=== PATIENT | female | born 1960 | race Two or more races ===

== ENCOUNTER 2021-07-26 08:08 | Emergency (ER) | payer BC, OTHER ==
[~2021-07-26] VITALS: Ht 162.6 cm; Wt 93.9 kg
[2021-07-26 09:10] VITALS: BP 136/71
[2021-07-26] MEDS ORDERED: CEPH-509 PO (09:34)
== END 2021-07-26 09:59 | disposition home or self-care (01) ==
LOC: ER 08:08
DX: S31.119A Laceration without foreign body of abdominal wall, unspecified quadrant without penetration into peritoneal cavity, initial encounter (principal); Z88.1 Allergy status to other antibiotic agents; W26.0XXA Contact with knife, initial encounter; Y93.89 Activity, other specified; Y92.89 Other specified places as the place of occurrence of the external cause; Y99.8 Other external cause status
CPT/HCPCS: 12001

== ENCOUNTER 2021-12-16 15:15 | Inpatient (IN) | payer BC ==
[~2021-12-16] VITALS: Ht 162.6 cm; Wt 99.6 kg
[~2021-12-16 15:15] MED LIST: CEPH-509 PO
[2021-12-16 17:00] LABS: Basophils # (auto) 0.1 10 ^3/uL (0-0.2); Basophils % (auto) 1.4 % (0.0-2.0); Eosinophils # (auto) 0.1 10 ^3/uL (0-0.8); Eosinophils % (auto) 1.4 % (0.0-7.0); Hematocrit 31.7 % (36.0-46.0); Lymphocytes # (auto) 0.6 10 ^3/uL (0.4-5.4); Mean Corpuscular Hemoglobin 23.8 pg (28.0-32.0); Mean Corpuscular Hgb Conc. 31.5 g/dL (32.0-36.0); Mean Corpuscular Volume 75.5 fL (80.0-100.0); Monocytes # (auto) 0.6 10 ^3/uL (0-1.3); Monocytes % (auto) 8.7 % (0.0-12.0); Neutrophils # (auto) 5.1 10 ^3/uL (1.6-8.6); Neutrophils % (auto) 79.5 % (37.0-80.0); Red Cell Distribution Width 19.2 % (11.8-14.3); White Blood Cell 6.4 10^3/uL (4.4-10.8)
[2021-12-16 17:01] LABS: Albumin 3.8 g/dL (3.4-5.0); Calcium 8.9 mg/dL (8.5-10.1); Magnesium 2.3 mg/dL (1.6-2.6); Potassium 3.9 mmol/L (3.5-5.1)
[2021-12-16 17:04] LABS: Bilirubin, Total 0.4 mg/dL (0.2-1.0); Total Protein 7.1 g/dL (6.4-8.2)
[2021-12-16] MEDS ORDERED: HYDROcodone-ACET 5/325MG TAB ONE (21:16)
[2021-12-16] MEDS ORDERED: HYDROcodone-ACET 5/325MG TAB PO ONE (22:00)
[2021-12-17] VITALS (8 sets, daily range): BP systolic 99–138; BP diastolic 39–69
[2021-12-17] MEDS ORDERED: ATOR-47 PO (01:43)
[2021-12-17] MEDS ORDERED: PREG100C PO (01:43)
[2021-12-17] MEDS ORDERED: SIMV-8 PO (01:43)
[2021-12-17] MEDS ORDERED: ALEN70TA74 PO (01:43)
[2021-12-17] MEDS ORDERED: DICL50TA4 PO (01:43)
[2021-12-17] MEDS ORDERED: FLUT100I IN (01:43)
[2021-12-17] MEDS ORDERED: FOLI1TAB6 PO (01:43)
[2021-12-17] MEDS ORDERED: CLOP75TA70 PO (01:43)
[2021-12-17] MEDS ORDERED: OMEG100078 PO (01:43)
[2021-12-17] MEDS ORDERED: CHOL-17 PO (01:43)
[2021-12-17] MEDS ORDERED: ALBUAER3 IN (01:43)
[2021-12-17] MEDS ORDERED: ASPI-543 PO (01:43)
[2021-12-17] MEDS ORDERED: NINT1CAP2 PO (01:43)
[2021-12-17] MEDS ORDERED: NITROGLYCERIN 0.4 MG SL TAB SL STA (01:47)
[2021-12-17] MEDS ORDERED: HYDROcodone-ACET 5/325MG TAB PO ONE (02:15)
[2021-12-17] MEDS ORDERED: ASPirin 81 mg TAB PO ONE (03:00)
[2021-12-17] MEDS ORDERED: ATORVASTATIN 20 MG TAB PO ONE (03:00)
[2021-12-17] MEDS ORDERED: ONDANSETRON HCL 4 MG/2 ML VIAL IV PRN (03:00)
[2021-12-17] MEDS ORDERED: CLOPIDOGREL BISULFATE 75 MG TAB PO ONE (03:00)
[2021-12-17] MEDS ORDERED: NITROGLYCERIN 0.4 MG SL TAB SL PRN (03:00)
[2021-12-17] MEDS ORDERED: MORPHINE SULFATE INJ 2 MG/ml SYRG IV PRN (03:00)
[2021-12-17] MEDS ORDERED: ENOXAPARIN SOD 100 MG/1 ML SYRINGE SC ONE (03:00)
[2021-12-17] MEDS: ASPirin 81 mg TAB PO SCH (10:41)
[2021-12-17] MEDS: PREGABALIN 25 MG CAP PO SCH ×2 (10:43→21:47)
[2021-12-17] MEDS: PANTOPRAZOLE 40 MG TAB PO SCH (10:43)
[2021-12-17] MEDS: METOPROLOL SUCCINATE XL 50 MG TAB PO SCH (10:43)
[2021-12-17 13:12] LABS: Urine Bacteria NONE SEEN /hpf (None Seen); Urine Blood Negative /uL (Negative); Urine Specific Gravity 1.024 (1.001-1.035); Urine WBC 7 /hpf (0 - 5)
[2021-12-17] MEDS ORDERED: PANT40T PO (15:01)
[2021-12-17] MEDS ORDERED: PREG-111 PO (15:01)
[2021-12-17] MEDS: ENOXAPARIN SOD 40 MG/0.4 ML SYRINGE SC SCH (17:15)
[2021-12-17] MEDS: HYDROcodone-ACET 5/325MG TAB PO PRN (19:34)
[2021-12-17] MEDS: ATORVASTATIN 20 MG TAB PO SCH (21:47)
[2021-12-17] MEDS ORDERED: NINTEDANIB ESYLATE 150 MG PO SCH (22:00)
[2021-12-18] VITALS (7 sets, daily range): BP systolic 99–127; BP diastolic 37–64
[2021-12-18 06:37] LABS: Basophils # (auto) 0.1 10 ^3/uL (0-0.2); Eosinophils # (auto) 0.2 10 ^3/uL (0-0.8); Monocytes # (auto) 0.5 10 ^3/uL (0-1.3); Neutrophils # (auto) 2.5 10 ^3/uL (1.6-8.6)
[2021-12-18 06:39] LABS: Basophils % (auto) 1.3 % (0.0-2.0); Eosinophils % (auto) 5.4 % (0.0-7.0); Hematocrit 27.2 % (36.0-46.0); Hemoglobin 8.7 g/dL (12.2-16.2); Lymphocytes # (auto) 0.7 10 ^3/uL (0.4-5.4); Lymphocytes % (auto) 17.6 % (10.0-50.0); Mean Corpuscular Hemoglobin 23.8 pg (28.0-32.0); Mean Corpuscular Volume 74.4 fL (80.0-100.0); Monocytes % (auto) 12.6 % (0.0-12.0); Neutrophils % (auto) 63.1 % (37.0-80.0); Nucleated Red Blood Cells % 0.2 %; Red Blood Cells 3.66 10^6/uL (4.0-5.20); Red Cell Distribution Width 18.9 % (11.8-14.3)
[2021-12-18 06:57] LABS: Albumin 3.3 g/dL (3.4-5.0); Calcium 8.7 mg/dL (8.5-10.1); Potassium 3.9 mmol/L (3.5-5.1)
[2021-12-18 07:02] LABS: BUN/Creatinine Ratio 14.4; Bilirubin, Total 0.7 mg/dL (0.2-1.0); Total Protein 6.3 g/dL (6.4-8.2)
[2021-12-18] MEDS: PANTOPRAZOLE 40 MG TAB PO SCH (09:26)
[2021-12-18] MEDS: ASPirin 81 mg TAB PO SCH (09:26)
[2021-12-18] MEDS: METOPROLOL SUCCINATE XL 50 MG TAB PO SCH (09:28)
[2021-12-18] MEDS: ENOXAPARIN SOD 40 MG/0.4 ML SYRINGE SC SCH (09:28)
[2021-12-18] MEDS: NINTEDANIB ESYLATE 150 MG PO SCH ×2 (09:30→18:00)
[2021-12-18] MEDS: PREGABALIN 25 MG CAP PO SCH ×2 (09:42→22:53)
[2021-12-18] MEDS ORDERED: ADENOSINE 83 MG in GIVE UN-DILUTED 0 ML IV ONE (14:45)
[2021-12-18] MEDS: ATORVASTATIN 20 MG TAB PO SCH (22:53)
[2021-12-18] MEDS: HYDROcodone-ACET 5/325MG TAB PO PRN (23:41)
[2021-12-19] VITALS (7 sets, daily range): BP systolic 108–145; BP diastolic 58–84
[2021-12-19] MEDS: PREGABALIN 25 MG CAP PO SCH ×2 (09:03→22:26)
[2021-12-19] MEDS: ASPirin 81 mg TAB PO SCH (09:04)
[2021-12-19] MEDS: METOPROLOL SUCCINATE XL 50 MG TAB PO SCH (09:04)
[2021-12-19] MEDS: NINTEDANIB ESYLATE 150 MG PO SCH ×2 (09:05→16:40)
[2021-12-19] MEDS: PANTOPRAZOLE 40 MG TAB PO SCH (09:05)
[2021-12-19] MEDS: HYDROCORTONE 1% TOPICAL CREAM 30 GM TUBE TOP SCH (22:00)
[2021-12-19] MEDS: ATORVASTATIN 20 MG TAB PO SCH (22:27)
[2021-12-19] MEDS: HYDROcodone-ACET 5/325MG TAB PO PRN (22:29)
[2021-12-20 05:00] VITALS: BP 113/49
[2021-12-20 09:00] VITALS: BP 114/65
[2021-12-20] MEDS: NINTEDANIB ESYLATE 150 MG PO SCH ×2 (09:02→17:37)
[2021-12-20] MEDS: ASPirin 81 mg TAB PO SCH (09:26)
[2021-12-20] MEDS: PANTOPRAZOLE 40 MG TAB PO SCH ×2 (09:26→21:37)
[2021-12-20] MEDS: PREGABALIN 25 MG CAP PO SCH ×2 (09:26→21:36)
[2021-12-20] MEDS: METOPROLOL SUCCINATE XL 50 MG TAB PO SCH (09:27)
[2021-12-20 12:54] LABS: Hematocrit 29.3 % (36.0-46.0); Hemoglobin 9.1 g/dL (12.2-16.2)
[2021-12-20 13:00] VITALS: BP 110/62
[2021-12-20] MEDS: HYDROcodone-ACET 5/325MG TAB PO PRN ×2 (14:26→21:37)
[2021-12-20 16:52] VITALS: BP 116/58
[2021-12-20] MEDS: HYDROCORTONE 1% TOPICAL CREAM 30 GM TUBE TOP SCH ×2 (17:00→21:38)
[2021-12-20] MEDS: ATORVASTATIN 20 MG TAB PO SCH (21:36)
[2021-12-20 22:00] VITALS: BP 108/64
[2021-12-21 05:00] VITALS: BP 107/62
[2021-12-21 06:33] LABS: INR 0.99 (0.9-1.15); Partial Thromboplastin Time 26.9 sec (24.6-33.4)
[2021-12-21 06:38] LABS: Basophils # (auto) 0.1 10 ^3/uL (0-0.2); Eosinophils # (auto) 0.2 10 ^3/uL (0-0.8); Eosinophils % (auto) 5.5 % (0.0-7.0); Lymphocytes # (auto) 0.7 10 ^3/uL (0.4-5.4); Monocytes # (auto) 0.4 10 ^3/uL (0-1.3); Neutrophils # (auto) 2.6 10 ^3/uL (1.6-8.6)
[2021-12-21 06:40] LABS: Basophils % (auto) 1.3 % (0.0-2.0); Hematocrit 27.8 % (36.0-46.0); Lymphocytes % (auto) 17.1 % (10.0-50.0); Mean Corpuscular Hemoglobin 24.7 pg (28.0-32.0); Mean Corpuscular Hgb Conc. 32.6 g/dL (32.0-36.0); Mean Corpuscular Volume 75.7 fL (80.0-100.0); Monocytes % (auto) 10.8 % (0.0-12.0); Neutrophils % (auto) 65.3 % (37.0-80.0); Nucleated Red Blood Cells % 0.1 %; Red Blood Cells 3.67 10^6/uL (4.0-5.20); Red Cell Distribution Width 19.1 % (11.8-14.3)
[2021-12-21 06:42] LABS: Potassium 3.9 mmol/L (3.5-5.1)
[2021-12-21 06:48] LABS: Albumin 3.5 g/dL (3.4-5.0); BUN/Creatinine Ratio 11.7; Calcium 8.8 mg/dL (8.5-10.1)
[2021-12-21 07:00] LABS: Bilirubin, Total 0.5 mg/dL (0.2-1.0); Total Protein 6.3 g/dL (6.4-8.2)
[2021-12-21] MEDS: NINTEDANIB ESYLATE 150 MG PO SCH ×2 (08:00→17:50)
[2021-12-21 08:57] VITALS: BP 115/57
[2021-12-21] MEDS: METOPROLOL SUCCINATE XL 50 MG TAB PO SCH (10:00)
[2021-12-21] MEDS: ASPirin 81 mg TAB PO SCH (10:00)
[2021-12-21] MEDS: PANTOPRAZOLE 40 MG TAB PO SCH ×3 (10:00→21:35)
[2021-12-21] MEDS: PREGABALIN 25 MG CAP PO SCH ×2 (10:00→21:35)
[2021-12-21] MEDS: HYDROCORTONE 1% TOPICAL CREAM 30 GM TUBE TOP SCH ×2 (10:25→21:35)
[2021-12-21] MEDS ORDERED: IODIXANOL 320MG/ML 100ML BTL IV ONE (12:14)
[2021-12-21] MEDS ORDERED: LIDOCAINE 2%HCL (LOCAL ANESTH.) INJ 10ml MDV ONE (12:15)
[2021-12-21 13:00] VITALS: BP 111/59
[2021-12-21] MEDS ORDERED: ANGIOMAX 250 MG VIAL IV ONE (13:27)
[2021-12-21] MEDS ORDERED: fentaNYL CITRATE 100 MCG/2 ML VL ONE (13:27)
[2021-12-21] MEDS ORDERED: MIDAZOLAM HCL 2MG/2ML 2ml VIAL (1mg/ml) ONE (13:27)
[2021-12-21] MEDS ORDERED: SODIUM CHL 0.9% 50 ML ONE (13:27)
[2021-12-21] MEDS ORDERED: CLOPIDOGREL 300 MG TAB ONE (14:13)
[2021-12-21] MEDS: HYDROcodone-ACET 5/325MG TAB PO PRN (14:52)
[2021-12-21 17:00] VITALS: BP 135/57
[2021-12-21 20:00] VITALS: BP 114/65
[2021-12-21] MEDS: ATORVASTATIN 20 MG TAB PO SCH (21:35)
[2021-12-21 22:00] VITALS: BP 115/67
[2021-12-22 05:00] VITALS: BP 109/67
[2021-12-22 08:39] VITALS: BP 104/59
[2021-12-22] MEDS ORDERED: ASPI-325 PO (09:55)
[2021-12-22] MEDS ORDERED: ATOR20TA50 PO (09:55)
[2021-12-22] MEDS ORDERED: CLOP75TA70 PO (09:55)
[2021-12-22] MEDS ORDERED: METO-6 PO (09:55)
[2021-12-22] MEDS: PANTOPRAZOLE 40 MG TAB PO SCH (09:59)
[2021-12-22] MEDS: NINTEDANIB ESYLATE 150 MG PO SCH (09:59)
[2021-12-22] MEDS: ASPirin 81 mg TAB PO SCH (10:00)
[2021-12-22] MEDS ORDERED: CLOPIDOGREL BISULFATE 75 MG TAB PO SCH (10:00)
[2021-12-22] MEDS: PREGABALIN 25 MG CAP PO SCH (10:00)
[2021-12-22] MEDS: METOPROLOL SUCCINATE XL 50 MG TAB PO SCH (10:00)
[2021-12-22] MEDS: HYDROCORTONE 1% TOPICAL CREAM 30 GM TUBE TOP SCH (10:00)
[2021-12-22 11:34] VITALS: BP 105/61
== END 2021-12-22 13:40 | disposition home or self-care (01) | DRG 247 ==
LOC: ER 15:15 → TELE 12-17 02:50 → TELE-CENTR 12-17 07:42
PROVIDERS: ADMIT Nurse Practitioner; ATTEND Internal Medicine
PROC: 027034Z Dilation of Coronary Artery, One Artery with Drug-eluting Intraluminal Device, Percutaneous Approach (ICD-10-PCS; principal; 2021-12-21)
PROC: 4A023N7 Measurement of Cardiac Sampling and Pressure, Left Heart, Percutaneous Approach (ICD-10-PCS; 2021-12-21)
PROC: B211YZZ Fluoroscopy of Multiple Coronary Arteries using Other Contrast (ICD-10-PCS; 2021-12-21)
PROC: B215YZZ Fluoroscopy of Left Heart using Other Contrast (ICD-10-PCS; 2021-12-21)
DX: I21.4 Non-ST elevation (NSTEMI) myocardial infarction (principal); J96.10 Chronic respiratory failure, unspecified whether with hypoxia or hypercapnia; I69.354 Hemiplegia and hemiparesis following cerebral infarction affecting left non-dominant side; E78.5 Hyperlipidemia, unspecified; I10 Essential (primary) hypertension; J44.9 Chronic obstructive pulmonary disease, unspecified; J84.10 Pulmonary fibrosis, unspecified; Z20.822 Contact with and (suspected) exposure to COVID-19; M19.90 Unspecified osteoarthritis, unspecified site; D64.9 Anemia, unspecified; D75.89 Other specified diseases of blood and blood-forming organs; E66.9 Obesity, unspecified; Z68.37 Body mass index [BMI] 37.0-37.9, adult; Z79.02 Long term (current) use of antithrombotics/antiplatelets; Z79.82 Long term (current) use of aspirin; Z79.899 Other long term (current) drug therapy; Z82.3 Family history of stroke; Z82.49 Family history of ischemic heart disease and other diseases of the circulatory system; Z88.8 Allergy status to other drugs, medicaments and biological substances
CPT/HCPCS: 36415; 71045; 78452; 80053; 81001; 83036; 83735; 84443; 84484; 85014; 85018; 85025; 85379; 85610; 85730; 86850; 86900; 86901; 93005; 93017; 93306; 96372; 99152; 99291; C1874; G0378; J0153; J2001; J2250; Q9967

== ENCOUNTER 2022-11-05 11:55 | Inpatient (IN) | payer BC, MEDICARE ==
[~2022-11-05] VITALS: Ht 162.6 cm; Wt 91.7 kg
[~2022-11-05 11:55] MED LIST changes: +ALBUAER3 IN; +ALEN70TA74 PO; +ASPI-325 PO; +ASPI-543 PO; +ATOR-47 PO; +ATOR20TA50 PO; -CEPH-509 PO; +CHOL-17 PO; +CLOP75TA70 PO; +DICL50TA4 PO; +FLUT100I IN; +FOLI-119 PO; +METO-6 PO; +NINT1CAP2 PO; +OMEG-20 PO; +PANT40T PO; +PREG-111 PO; +PREG100C PO; +SIMV20TA20 PO
[2022-11-05 12:57] LABS: Basophils # (auto) 0.1 10 ^3/uL (0-0.2); Basophils % (auto) 0.8 % (0.0-2.0); Eosinophils # (auto) 0.1 10 ^3/uL (0-0.8); Hematocrit 36.2 % (36.0-46.0); Hemoglobin 12.8 g/dL (12.2-16.2); Lymphocytes # (auto) 2.7 10 ^3/uL (0.4-5.4); Lymphocytes % (auto) 23.5 % (10.0-50.0); Mean Corpuscular Hemoglobin 32.9 pg (28.0-32.0); Mean Corpuscular Hgb Conc. 35.4 g/dL (32.0-36.0); Mean Corpuscular Volume 93.1 fL (80.0-100.0); Monocytes # (auto) 1.1 10 ^3/uL (0-1.3); Neutrophils # (auto) 7.4 10 ^3/uL (1.6-8.6); Neutrophils % (auto) 64.7 % (37.0-80.0); Nucleated Red Blood Cells % 0.1 %; Red Blood Cells 3.89 10^6/uL (4.0-5.20); White Blood Cell 11.5 10^3/uL (4.4-10.8)
[2022-11-05 13:39] LABS: Albumin 3.7 g/dL (3.4-5.0); Potassium 3.4 mmol/L (3.5-5.1)
[2022-11-05 13:52] LABS: BUN/Creatinine Ratio 22.4 (10.0-20.0); Bilirubin, Total 0.7 mg/dL (0.2-1.0); Calcium 9.1 mg/dL (8.5-10.1); Total Protein 6.9 g/dL (6.4-8.2)
[2022-11-05] MEDS ORDERED: SODIUM CHLORIDE 0.9% 1,000 ML IV ONE (14:45)
[2022-11-05] MEDS ORDERED: POTASSIUM EFFERVESENT TAB 25 MEQ GT ONE (14:45)
[2022-11-05 16:19] LABS: Urine Bacteria FEW /hpf (None Seen); Urine Blood Negative /uL (Negative); Urine Specific Gravity 1.006 (1.001-1.035); Urine WBC 27 /hpf (0 - 5)
[2022-11-05] MEDS ORDERED: ONDANSETRON HCL 4 MG/2 ML VIAL IV PRN (18:15)
[2022-11-05] MEDS ORDERED: DOCUSATE SOD 100 MG CAP PO PRN (18:15)
[2022-11-05] MEDS ORDERED: ALBUTEROL SULF 2.5 MG/0.5ML(0.5%) NEB SOLN NEB PRN (18:30)
[2022-11-05] MEDS: SODIUM CHLORIDE 0.9% 1,000 ML IV SCH (18:38)
[2022-11-05] MEDS: cefTRIAXone 1GM/50ML D5W 50 ML IV SCH (18:52)
[2022-11-05] MEDS: PANTOPRAZOLE 40 MG/10 ML VIAL INJ IV SCH (18:52)
[2022-11-05 19:06] LABS: Creatinine, Urine 56 mg/dL (30.0-125.0); Sodium Urine 19 mmol/L (40-220)
[2022-11-05] MEDS ORDERED: NOREPINEPHRINE 8 MG/250ML KIT 250 ML IV ONE (19:53)
[2022-11-05] MEDS: NOREPINEPHRINE 8 MG/250ML KIT 250 ML IV SCH (20:04)
[2022-11-05 20:59] VITALS: BP 83/49
[2022-11-05] MEDS: ATORVASTATIN 20 MG TAB PO SCH (22:50)
[2022-11-05] MEDS ORDERED: ACETAMINOPHEN 325 MG TAB PO ONE (23:00)
[2022-11-05 23:30] VITALS: BP 111/55
[2022-11-05 23:35] VITALS: BP 111/55
[2022-11-05 23:45] VITALS: BP 96/60
[2022-11-06] VITALS (92 sets, daily range): BP systolic 82–138; BP diastolic 38–73
[2022-11-06] MEDS: metroNIDAZOLE 500MG/100ML 100 ML IV SCH ×4 (00:20→22:03)
[2022-11-06] MEDS: SODIUM CHLORIDE 0.9% 1,000 ML IV SCH ×3 (00:20→22:03)
[2022-11-06 05:22] LABS: Potassium 3.9 mmol/L (3.5-5.1)
[2022-11-06 05:28] LABS: Basophils # (auto) 0.1 10 ^3/uL (0-0.2); Basophils % (auto) 0.8 % (0.0-2.0); Eosinophils # (auto) 0.2 10 ^3/uL (0-0.8); Eosinophils % (auto) 1.5 % (0.0-7.0); Hemoglobin 12.1 g/dL (12.2-16.2); Lymphocytes # (auto) 2.4 10 ^3/uL (0.4-5.4); Lymphocytes % (auto) 23.6 % (10.0-50.0); Mean Corpuscular Hemoglobin 33.3 pg (28.0-32.0); Mean Corpuscular Hgb Conc. 35.6 g/dL (32.0-36.0); Mean Corpuscular Volume 93.7 fL (80.0-100.0); Monocytes # (auto) 1.1 10 ^3/uL (0-1.3); Monocytes % (auto) 10.4 % (0.0-12.0); Neutrophils # (auto) 6.6 10 ^3/uL (1.6-8.6); Neutrophils % (auto) 63.7 % (37.0-80.0); Nucleated Red Blood Cells % 0.1 %; Red Blood Cells 3.63 10^6/uL (4.0-5.20); Red Cell Distribution Width 16.8 % (11.8-14.3); White Blood Cell 10.4 10^3/uL (4.4-10.8)
[2022-11-06 05:33] LABS: Albumin 3.1 g/dL (3.4-5.0); BUN/Creatinine Ratio 31.7 (10.0-20.0); Bilirubin, Total 0.5 mg/dL (0.2-1.0); Calcium 8.8 mg/dL (8.5-10.1); Total Protein 6.2 g/dL (6.4-8.2)
[2022-11-06] MEDS: cefTRIAXone 1GM/50ML D5W 50 ML IV SCH (09:35)
[2022-11-06] MEDS: PANTOPRAZOLE 40 MG/10 ML VIAL INJ IV SCH (09:35)
[2022-11-06] MEDS: ASPirin-EC 81 mg tab PO SCH (09:36)
[2022-11-06] MEDS: CHOLECALCIFEROL (VITD3) 1,000UNIT=25mCg TAB PO SCH (09:36)
[2022-11-06] MEDS ORDERED: CLOPIDOGREL BISULFATE 75 MG TAB PO SCH (10:00)
[2022-11-06] MEDS: NOREPINEPHRINE 8 MG/250ML KIT 250 ML IV SCH (19:45)
[2022-11-06] MEDS: ATORVASTATIN 20 MG TAB PO SCH (22:00)
[2022-11-07] VITALS (76 sets, daily range): BP systolic 86–139; BP diastolic 39–86
[2022-11-07 04:32] LABS: Basophils # (auto) 0.1 10 ^3/uL (0-0.2); Basophils % (auto) 1.1 % (0.0-2.0); Eosinophils # (auto) 0.1 10 ^3/uL (0-0.8); Eosinophils % (auto) 2.3 % (0.0-7.0); Hematocrit 29.5 % (36.0-46.0); Hemoglobin 10.7 g/dL (12.2-16.2); Lymphocytes # (auto) 1.3 10 ^3/uL (0.4-5.4); Lymphocytes % (auto) 23.4 % (10.0-50.0); Mean Corpuscular Hgb Conc. 36.1 g/dL (32.0-36.0); Mean Corpuscular Volume 94.2 fL (80.0-100.0); Monocytes # (auto) 0.6 10 ^3/uL (0-1.3); Monocytes % (auto) 10.5 % (0.0-12.0); Neutrophils # (auto) 3.4 10 ^3/uL (1.6-8.6); Neutrophils % (auto) 62.7 % (37.0-80.0); Nucleated Red Blood Cells % 0.2 %; Red Blood Cells 3.13 10^6/uL (4.0-5.20); Red Cell Distribution Width 17.2 % (11.8-14.3); White Blood Cell 5.4 10^3/uL (4.4-10.8)
[2022-11-07 04:49] LABS: Albumin 2.6 g/dL (3.4-5.0); Calcium 8.2 mg/dL (8.5-10.1); Potassium 4.1 mmol/L (3.5-5.1)
[2022-11-07 04:51] LABS: Bilirubin, Total 0.4 mg/dL (0.2-1.0); Total Protein 5.5 g/dL (6.4-8.2)
[2022-11-07] MEDS: metroNIDAZOLE 500MG/100ML 100 ML IV SCH ×3 (06:37→21:34)
[2022-11-07] MEDS: ASPirin-EC 81 mg tab PO SCH (10:12)
[2022-11-07] MEDS: cefTRIAXone 1GM/50ML D5W 50 ML IV SCH (10:12)
[2022-11-07] MEDS: CHOLECALCIFEROL (VITD3) 1,000UNIT=25mCg TAB PO SCH (10:12)
[2022-11-07] MEDS: PANTOPRAZOLE 40 MG/10 ML VIAL INJ IV SCH (10:13)
[2022-11-07] MEDS: PRASUGREL HCL 10 MG TAB PO SCH (10:21)
[2022-11-07] MEDS: SODIUM CHLORIDE 0.9% 1,000 ML IV SCH ×2 (10:28→20:15)
[2022-11-07] MEDS: TRELEGY IN SCH ×2 (12:00→16:26)
[2022-11-07] MEDS: NOREPINEPHRINE 8 MG/250ML KIT 250 ML IV SCH (19:45)
[2022-11-07] MEDS: ATORVASTATIN 20 MG TAB PO SCH (21:34)
[2022-11-08] VITALS (19 sets, daily range): BP systolic 94–150; BP diastolic 40–87
[2022-11-08] MEDS: metroNIDAZOLE 500MG/100ML 100 ML IV SCH (05:44)
[2022-11-08] MEDS: SODIUM CHLORIDE 0.9% 1,000 ML IV SCH ×3 (06:15→21:32)
[2022-11-08] MEDS: cefTRIAXone 1GM/50ML D5W 50 ML IV SCH (08:46)
[2022-11-08] MEDS: PRASUGREL HCL 10 MG TAB PO SCH (10:41)
[2022-11-08] MEDS: PANTOPRAZOLE 40 MG/10 ML VIAL INJ IV SCH (10:41)
[2022-11-08] MEDS: CHOLECALCIFEROL (VITD3) 1,000UNIT=25mCg TAB PO SCH (10:41)
[2022-11-08] MEDS: ASPirin-EC 81 mg tab PO SCH (10:41)
[2022-11-08] MEDS ORDERED: FOLIC ACID 1 MG TAB PO ONE (11:15)
[2022-11-08] MEDS: TRELEGY IN SCH (12:00)
[2022-11-08] MEDS: metroNIDAZOLE 500 MG TAB PO SCH ×2 (14:51→21:31)
[2022-11-08] MEDS: ATORVASTATIN 20 MG TAB PO SCH (21:31)
[2022-11-08] MEDS: METOPROLOL TARTRATE 25 MG TAB PO SCH (21:34)
[2022-11-09] VITALS (8 sets, daily range): BP systolic 108–139; BP diastolic 54–78
[2022-11-09 06:16] LABS: Basophils # (auto) 0 10 ^3/uL (0-0.2); Basophils % (auto) 0.8 % (0.0-2.0); Eosinophils # (auto) 0.1 10 ^3/uL (0-0.8); Eosinophils % (auto) 3.2 % (0.0-7.0); Hematocrit 29.3 % (36.0-46.0); Hemoglobin 10.3 g/dL (12.2-16.2); Lymphocytes % (auto) 24.2 % (10.0-50.0); Mean Corpuscular Hemoglobin 33.4 pg (28.0-32.0); Mean Corpuscular Hgb Conc. 35.2 g/dL (32.0-36.0); Mean Corpuscular Volume 94.9 fL (80.0-100.0); Monocytes # (auto) 0.4 10 ^3/uL (0-1.3); Monocytes % (auto) 9.3 % (0.0-12.0); Neutrophils # (auto) 2.5 10 ^3/uL (1.6-8.6); Neutrophils % (auto) 62.5 % (37.0-80.0); Nucleated Red Blood Cells % 0.1 %; Red Blood Cells 3.08 10^6/uL (4.0-5.20); Red Cell Distribution Width 16.7 % (11.8-14.3)
[2022-11-09 06:36] LABS: BUN/Creatinine Ratio 5.8 (10.0-20.0); Calcium 7.5 mg/dL (8.5-10.1); Potassium 3.5 mmol/L (3.5-5.1)
[2022-11-09] MEDS: metroNIDAZOLE 500 MG TAB PO SCH (06:49)
[2022-11-09] MEDS: cefTRIAXone 1GM/50ML D5W 50 ML IV SCH (08:59)
[2022-11-09] MEDS: PRASUGREL HCL 10 MG TAB PO SCH (09:46)
[2022-11-09] MEDS: ASPirin-EC 81 mg tab PO SCH (09:46)
[2022-11-09] MEDS: CHOLECALCIFEROL (VITD3) 1,000UNIT=25mCg TAB PO SCH (09:47)
[2022-11-09] MEDS: METOPROLOL TARTRATE 25 MG TAB PO SCH (09:48)
[2022-11-09] MEDS ORDERED: FOLIC ACID 1 MG TAB PO SCH (10:00)
[2022-11-09] MEDS ORDERED: FLORASTOR (S. BOULARDII) 250 MG CAP PO SCH (10:00)
[2022-11-09] MEDS ORDERED: PANTOPRAZOLE 40 MG TAB PO SCH (10:00)
== END 2022-11-09 14:42 | disposition home or self-care (01) | DRG 391 ==
LOC: ER 11:55 → OVERFLOW 18:02 → DOU IN ICU 22:51 → ICU CENTRL 11-06 01:28 → DOU IN ICU 11-07 17:34
PROVIDERS: ADMIT Nurse Practitioner Family; ATTEND Internal Medicine
DX: K57.30 Diverticulosis of large intestine without perforation or abscess without bleeding (principal); N17.0 Acute kidney failure with tubular necrosis; E87.1 Hypo-osmolality and hyponatremia; N30.00 Acute cystitis without hematuria; I50.22 Chronic systolic (congestive) heart failure; J96.10 Chronic respiratory failure, unspecified whether with hypoxia or hypercapnia; T45.1X5A Adverse effect of antineoplastic and immunosuppressive drugs, initial encounter; E78.5 Hyperlipidemia, unspecified; E86.0 Dehydration; E87.5 Hyperkalemia; I25.10 Atherosclerotic heart disease of native coronary artery without angina pectoris; J84.10 Pulmonary fibrosis, unspecified; K64.9 Unspecified hemorrhoids; M06.9 Rheumatoid arthritis, unspecified; M25.511 Pain in right shoulder; D72.829 Elevated white blood cell count, unspecified; I11.0 Hypertensive heart disease with heart failure; D64.9 Anemia, unspecified; E66.9 Obesity, unspecified; M05.10 Rheumatoid lung disease with rheumatoid arthritis of unspecified site; I25.2 Old myocardial infarction; Z86.73 Personal history of transient ischemic attack (TIA), and cerebral infarction without residual deficits; Z90.711 Acquired absence of uterus with remaining cervical stump; Z82.3 Family history of stroke; Z95.5 Presence of coronary angioplasty implant and graft; Z68.34 Body mass index [BMI] 34.0-34.9, adult; Z88.8 Allergy status to other drugs, medicaments and biological substances
CPT/HCPCS: 36415; 71045; 73030; 74176; 80048; 80053; 81001; 82270; 82570; 83605; 83880; 84300; 84484; 85025; 85048; 85379; 85652; 87045; 87081; 87086; 87177; 87427; 87493; 93005; 93306; 96360; 97116; 97163; 97530; C9113; G0378; J0696; J3490